=== PATIENT | female | born 1950 | race Caucasian/White ===

== ENCOUNTER 2016-09-21 07:06 | Day surgery (SDC) | payer OTHER, BC ==
[2016-09-21] MEDS ORDERED: D5 LR 1000 ML 1,000 ML IV ONE (07:43)
[2016-09-21] MEDS ORDERED: DIPRIVAN VIAL 20 ML ONE (09:00)
[2016-09-21 10:07] VITALS: BP 115/65
== END 2016-09-21 09:45 | disposition home or self-care (01) ==
LOC: SURG1 07:06
PROVIDERS: ATTEND Internal Medicine Gastroenterology
PROC: 0DJD8ZZ Inspection of Lower Intestinal Tract, Via Natural or Artificial Opening Endoscopic (ICD-10-PCS; principal; 2016-09-21 09:30)
DX: Z12.11 Encounter for screening for malignant neoplasm of colon (principal); R19.4 Change in bowel habit; K64.8 Other hemorrhoids; Z80.0 Family history of malignant neoplasm of digestive organs
CPT/HCPCS: A4217; J3490; J7120